=== PATIENT | female | born 1990 ===

== ENCOUNTER → 2023-01-05 | Outpatient (CLI) | payer OTHER ==
[2023-01-06 10:52] LABS: Candida species (DNA Probe) Positive (NEGATIVE); G. vaginalis (DNA Probe) Negative (NEGATIVE); T. vaginalis (DNA Probe) Negative (NEGATIVE)
== END | disposition home or self-care (01) ==
LOC: LAB SHORT 15:41 → LAB 15:41
PROVIDERS: Obstetrics & Gynecology
DX: N76.0 Acute vaginitis (principal)
CPT/HCPCS: 87480; 87510; 87660

== ENCOUNTER → 2023-03-01 | Outpatient (CLI) | payer OTHER | END | disposition home or self-care (01) | LOC: LAB SHORT 14:33 → LAB 14:33 | DX: Z33.1 Pregnant state, incidental (principal) | CPT/HCPCS: 87081; 87150 ==

== ENCOUNTER 2023-03-29 07:42 | Inpatient (IN) | payer OTHER ==
[2023-03-29] VITALS (17 sets, daily range): BP systolic 101–177; BP diastolic 53–127
[~2023-03-29] VITALS: Ht 170.2 cm; Wt 71.1 kg
[2023-03-29 08:39] LABS: BASOPHILS ABSOLUTE AUTO 0.03 K/mm3 (0.00-0.23); BASOPHILS PERCENT AUTO 0 % (0-2); EOSINOPHILS ABSOLUTE AUTO 0.13 K/mm3 (0.00-0.68); EOSINOPHILS PERCENT AUTO 2 % (0-6); Hemoglobin 11.7 g/dL (11.5-16.0); IMMATURE GRAN ABSOLUTE AUTO 0.03 K/mm3 (0.00-0.10); IMMATURE GRAN PERCENT AUTO 0 % (0-1); LYMPHOCYTES ABSOLUTE AUTO 1.76 K/mm3 (0.84-5.20); LYMPHOCYTES PERCENT AUTO 22 % (21-46); MONOCYTES ABSOLUTE AUTO 0.92 K/mm3 (0.16-1.47); MONOCYTES PERCENT AUTO 11 % (4-13); Mean Corpuscular HGB 31.1 pg (26.0-34.0); Mean Corpuscular HGB Conc 33.4 g/dL (31.5-36.5); Mean Corpuscular Volume 93 fL (80-100); Mean Platelet Volume 11.6 fL (9.1-12.4); NEUTROPHILS ABSOLUTE AUTO 5.22 K/mm3 (1.96-9.15); NEUTROPHILS PERCENT AUTO 64 % (41-73); Platelet Count 195 K/mm3 (150-400); RDW Coefficient Variation 13.1 % (11.7-14.2); RDW Standard Deviation 44.9 fL (35.1-46.3); Red Blood Cell Count 3.76 M/mm3 (3.80-5.20); White Blood Cell Count 8.09 K/mm3 (4.00-11.30)
[2023-03-30 07:59] VITALS: BP 119/59
[2023-03-30 11:20] VITALS: BP 106/51
[2023-03-30 17:11] VITALS: BP 113/59
[2023-03-30 20:00] VITALS: BP 113/61
[2023-03-30 23:08] VITALS: BP 107/58
[2023-03-31 04:01] VITALS: BP 91/46
--- NOTE | 2023-03-31 07:14 | NUR ---
EPD SCORE OF 11. CONSULT TO CARE MANAGEMENT PLACED. VOICEMAIL ALSO LEFT WITH CARE MANAGEMENT FOR SCORE.
[2023-03-31 07:36] VITALS: BP 103/61
== END 2023-03-31 12:20 | disposition home or self-care (01) | DRG 807 ==
LOC: OBS 07:42 → BC 07:43 → OBS 07:59 → BC 08:02
PROVIDERS: ADMIT Obstetrics & Gynecology
PROC: 10E0XZZ Delivery of Products of Conception, External Approach (ICD-10-PCS; principal; 2023-03-29)
PROC: 0KQM0ZZ Repair Perineum Muscle, Open Approach (ICD-10-PCS; 2023-03-29)
PROC: 10907ZC Drainage of Amniotic Fluid, Therapeutic from Products of Conception, Via Natural or Artificial Opening (ICD-10-PCS; 2023-03-29)
DX: O48.0 Post-term pregnancy (principal); Z37.0 Single live birth; O32.1XX0 Maternal care for breech presentation, not applicable or unspecified; O70.1 Second degree perineal laceration during delivery; O99.344 Other mental disorders complicating childbirth; F32.A Depression, unspecified; Z3A.40 40 weeks gestation of pregnancy; Z98.890 Other specified postprocedural states
CPT/HCPCS: 36415; 85025; 86850; 86900; 86901; A9270; J1885; J2210; J2590; J2710; J3010; J7120